=== PATIENT | male | born 1990 | race Caucasian/White ===

== ENCOUNTER 2017-02-23 22:03 | Emergency (ER) | payer MEDICAID ==
[2017-02-23 22:31] VITALS: BP 170/92
--- NOTE | 2017-02-23 22:51 | EDM.PDOCBH ---
[id number]: ADELAIDA Time Seen by Provider: 02/23/17 22:40 Source of Information: Reports: Patient, Family History Limitations: Reports: No Limitations - History of Present Illness INITIAL COMMENTS - FREE TEXT/NARRATIVE: 27-year-old male who is been in detox for the last 3 days was discharged today, they told him he should go to inpatient treatment but he wanted to go home and "clean his apartment". Tonight he was feeling shaky and weak so his family brought him in. Physically he is stable but he looks emotionally anxious. No nausea or vomiting, he ate "Sanchez's" today, no hallucinations and he is thinking clearly. Severity: Moderate Associated Symptoms: Reports: Weakness. Denies: Cough, Nausea/Vomiting - Related Data Allergies Allergy/AdvReac Type Severity Reaction Status Date / Time No Known Allergies Allergy Verified 07/13/16 22:08 Home Meds: Home Meds NK [No Known Home Meds] 07/13/16 [History] Past Medical History Psychiatric History: Reports: Addiction - Infectious Disease History Infectious Disease History: Reports: Chicken Pox Social & Family History - Tobacco Use Smoking Status *Q: Never Smoker Second Hand Smoke Exposure: No - Caffeine Use Caffeine Use: Reports: Other Other Caffeine Use: Caffeinepills twicw a week. - Alcohol Use Days Per Week of Alcohol Use: 2 Number of Drinks Per Day: 15 Total Drinks Per Week: 30 - Recreational Drug Use Recreational Drug Use: No ED ROS GENERAL - Review of Systems Review Of Systems: See Below Constitutional: Reports: Malaise, Weakness. Denies: Fever, Chills Respiratory: Denies: Shortness of Breath Cardiovascular: Denies: Chest Pain GI/Abdominal: Denies: Abdominal Pain, Nausea, Vomiting Neurological: Denies: Headache Psychiatric: Reports: Anxiety ED EXAM, BEHAVIORAL HEALTH - Physical Exam Exam: See Below Exam Limited By: No Limitations General Appearance: Alert, Anxious Eye Exam: Bilateral Eye: EOMI Respiratory/Chest: No Respiratory Distress, Lungs Clear Cardiovascular: Regular Rate, Rhythm Neurological: Alert, Oriented x 3 Psychiatric: Flat Affect, Agitated (Mildly agitated) COURSE, BEHAVIORAL HEALTH COMP - Course Vital Signs: Last Vital Signs Temp 98.2 F 02/23/17 22:45 Pulse 74 02/23/17 22:45 Resp 20 02/23/17 22:45 BP 170/92 H 02/23/17 22:45 Pulse Ox 98 02/23/17 22:45 Orders, Labs, Meds: Medications Discontinued Medications Generic Name Dose Route Start Last Admin Trade Name Burton SELBY Reason Stop Dose Admin Lorazepam 1 mg 02/23/17 23:55 02/23/17 23:59 Ativan PO 02/23/17 23:56 1 mg ONETIME ONE Administration Re-Assessment/Re-Exam: Discussed with the detox center possibly getting the patient in for inpatient treatment tomorrow. He does not qualify for detox as he has already been detoxed for 4 days at another facility and did not drink. He was given 1 mg of Ativan to take by mouth tonight, and his father will call [facility] tomorrow morning to discuss inpatient treatment. Departure - Departure Time of Disposition: 00:12 Disposition: Home, Self-Care 01 Condition: Fair Clinical Impression: Alcohol abuse - Discharge Information Instructions: Alcohol Use Disorder Referrals: PCP,None [Primary Care Provider] - Forms: ED Department Discharge Care Plan Goals: Try to rest tonight, avoid alcohol, and call [facility] tomorrow morning to discuss inpatient treatment.
[2017-02-23] MEDS ORDERED: LORazepam 1 MG Tab PO ONE (23:55)
== END 2017-02-24 00:11 | disposition home or self-care (01) ==
LOC: JP.ED 22:03
DX: F10.10 Alcohol abuse, uncomplicated (principal); R45.1 Restlessness and agitation
CPT/HCPCS: 99284; A9270

== ENCOUNTER 2017-02-26 17:22 | Emergency (ER) | payer MEDICAID ==
[2017-02-26] MEDS ORDERED: HYDROmorphone 1 MG/ML Syringe IM ONE (17:28)
--- NOTE | 2017-02-26 17:37 | EDM.PDOC ---
ED HPI GENERAL MEDICAL PROBLEM - General Stated Complaint: TESTICULAR PAIN Time Seen by Provider: 02/26/17 17:35 Source of Information: Reports: Patient, RN Notes Reviewed History Limitations: Reports: No Limitations - History of Present Illness INITIAL COMMENTS - FREE TEXT/NARRATIVE: 27-year-old gentleman sent over from clinic for right testicular pain he states he had some dull achy pain throughout the day was been evaluated in urgent care clinic after the exam when he had to turn his head and cough developed excruciating pain was immediately transferred to the emergency department for further evaluation Groin Pain Score (Numeric/FACES): 10 - Related Data Allergies Allergy/AdvReac Type Severity Reaction Status Date / Time No Known Allergies Allergy Verified 02/26/17 17:39 Home Meds: Home Meds NK [No Known Home Meds] 07/13/16 [History] Past Medical History Psychiatric History: Reports: Addiction - Infectious Disease History Infectious Disease History: Reports: Chicken Pox Social & Family History - Tobacco Use Smoking Status *Q: Never Smoker Second Hand Smoke Exposure: No - Caffeine Use Caffeine Use: Reports: Other Other Caffeine Use: Caffeinepills twicw a week. - Alcohol Use Days Per Week of Alcohol Use: 2 Number of Drinks Per Day: 15 Total Drinks Per Week: 30 - Recreational Drug Use Recreational Drug Use: No ED ROS GENERAL - Review of Systems Review Of Systems: See Below Constitutional: Reports: No Symptoms Respiratory: Reports: No Symptoms Cardiovascular: Reports: No Symptoms : Reports: Pain (testicular pain right side) ED EXAM, RENAL/ - Physical Exam Exam: See Below Text/Narrative:: Palpation of the abdomen is soft nontender however he will not tolerate any examination of the testicles circumcised male Exam Limited By: No Limitations General Appearance: Alert, Severe Distress Course - Vital Signs Last Recorded V/S: Last Vital Signs Temp 98.2 F 02/26/17 17:36 Pulse 95 02/26/17 17:36 Resp 24 H 02/26/17 17:36 BP 164/90 H 02/26/17 17:36 Pulse Ox 100 02/26/17 17:36 - Orders/Labs/Meds Orders: Active Orders 24 hr Category Date Time Status Scrotal Duplex Complete [US] Routine Exams 02/26/17 Taken Scrotum and Contents [US] Stat Exams 02/26/17 17:28 Taken cefTRIAXone [Rocephin] Med 02/26/17 19:02 Once 0.25 gm IM ONETIME ONE Medication Orders Ceftriaxone Sodium (Rocephin) 0.25 gm IM ONETIME ONE Stop: 02/26/17 19:03 Meds: Medications Generic Name Dose Route Start Last Admin Trade Name Freq PRN Reason Stop Dose Admin Ceftriaxone Sodium 0.25 gm 02/26/17 19:02 Rocephin IM 02/26/17 19:03 ONETIME ONE Discontinued Medications Generic Name Dose Route Start Last Admin Trade Name Freq PRN Reason Stop Dose Admin Hydromorphone HCl 1 mg 02/26/17 17:28 02/26/17 17:38 Dilaudid IM 02/26/17 17:29 1 mg ONETIME ONE Administration Departure - Departure Time of Disposition: 19:03 Disposition: Home, Self-Care 01 Condition: Good Clinical Impression: Epididymitis - Discharge Information Additional Instructions: Take full course of antibiotics, use Tylenol or Motrin as needed for pain, call return to the emergency department worsening of symptoms - My Orders Last 24 Hours: My Active Orders 02/26/17 Scrotal Duplex Complete [US] Routine 02/26/17 17:28 Scrotum and Contents [US] Stat 02/26/17 19:02 cefTRIAXone [Rocephin] 0.25 gm IM ONETIME ONE - Assessment/Plan Last 24 Hours: My Active Orders 02/26/17 Scrotal Duplex Complete [US] Routine 02/26/17 17:28 Scrotum and Contents [US] Stat 02/26/17 19:02 cefTRIAXone [Rocephin] 0.25 gm IM ONETIME ONE Plan: Assessment Acuity = acute Site and laterality = epididymitis right testicle Etiology = probable bacterial cause Manifestations = testicular pain Location of injury = Home Lab values = ultrasound demonstrated epididymitis Plan Elected treat with ceftriaxone 250 mg IM 1+ doxycycline 100 mg by mouth twice a day 7 days follow-up with primary care in 5-7 days if no improvement, Patient was in agreement with the plan all questions were answered, they were instructed to return to the emergency department or call for worsening symptoms. This note was dictated using [employer] voice recognition software please call with any questions.
[2017-02-26 17:38] VITALS: BP 164/90
[2017-02-26] MEDS ORDERED: cefTRIAXone 1 GM Vial IM ONE (19:02)
[2017-02-26] MEDS ORDERED: cefTRIAXone 0.25 GM, Lidocaine 1% 2.1 ML IM ONE ×2 (19:08)
== END 2017-02-26 19:27 | disposition home or self-care (01) ==
LOC: JP.ED 17:22
DX: N45.1 Epididymitis (principal)
CPT/HCPCS: 76870; 93975; 96372; 99284; J0696; J1170

== ENCOUNTER 2017-03-04 18:23 | Emergency (ER) | payer MEDICAID ==
[2017-03-04] MEDS ORDERED: Sodium Chloride 0.9% 10 ML Syringe FLUSH PRN (18:58)
[2017-03-04] MEDS ORDERED: Ketorolac 30 MG/ML SDV IVPUSH ONE (18:59)
[2017-03-04 20:46] VITALS: BP 155/100
[2017-03-04] MEDS ORDERED: Sodium Chloride 0.9% 1,000 ML IV SCH (21:00)
[2017-03-04] MEDS ORDERED: HYDROmorphone 1 MG/ML Syringe IVPUSH ONE (21:34)
[2017-03-04] MEDS ORDERED: LORazepam 2 MG/ML MDV IVPUSH ONE (21:34)
--- NOTE | 2017-03-04 22:22 | EDM.PDOC ---
ED HPI GENERAL MEDICAL PROBLEM - General Chief Complaint: Genitourinary Problem Stated Complaint: TESTICLE PAIN Time Seen by Provider: 03/04/17 18:29 Source of Information: Reports: Patient History Limitations: Reports: No Limitations - History of Present Illness INITIAL COMMENTS - FREE TEXT/NARRATIVE: History of present illness: [27-year-old male was seen recently here in the ER and diagnosed with epididymitis and is on doxycycline for this but is not getting better. He was given oxycodone to control his pain ran out yesterday and presents now again with some severe right testicular pain. The reports of the ultrasound etc. that was done on his last visit. Said no fevers chills sweats cough or cold symptoms. I did speak to the patient alone and also to his father alone and the patient is actually admitting to being an alcoholic and has not drank for a week and is quite jittery and shaky as a result of that. His father who is also a recovering alcoholic is trying to find a place where he can be treated. He is a listing the help of social contact worker try to do this. Patient states though that he is afraid that medical care providers will focus on his alcoholism and his tremulousness is resulted of withdrawal and not realize that he actually is having right testicular pain.] Review of systems: As per history of present illness and below otherwise all systems reviewed and negative. Past medical history: As per history of present illness and as reviewed below otherwise noncontributory. Surgical history: As per history of present illness and as reviewed below otherwise noncontributory. Social history: No reported history of drug or alcohol abuse. Family history: As per history of present illness and as reviewed below otherwise noncontributory. Physical exam: Gen.: Patient is tremulous arms legs and even in the face and voice are tremulous and consistent with alcohol withdrawal. HEENT: Atraumatic, normocephalic, pupils reactive, negative for conjunctival pallor or scleral icterus, mucous membranes moist, throat clear, neck supple, nontender, trachea midline. Lungs: Clear to auscultation, breath sounds equal bilaterally, chest nontender. Heart: S1S2, regular, negative for clicks, rubs, or JVD. Abdomen: Soft, nondistended, nontender. Negative for masses or hepatosplenomegaly. Negative for costovertebral tenderness. Pelvis: Stable nontender. Genitourinary: Examination of his genitals reveal that he does have tenderness to palpation of the right testicle but I do not appreciate any masses or epididymal swelling he's been on doxycycline for about 7 days and that has not improved his pain so I'm questioning that diagnosis. He is cords nontender I'm not appreciating any hernias. He has no discharge. Rectal: Deferred. Extremities: Atraumatic, negative for cords or calf pain. Neurovascular unremarkable. Neuro: Awake, alert, oriented. Exam nonfocal. Diagnostics: [I did do an abdominal pelvic CT to rule out a kidney stone and that was negative. Other lab work included CBC complete metabolic panel and UA all which are unremarkable. Urine drug screen was positive for oxycodone which he was prescribed.] Therapeutics: [He was given IV fluids IV Ativan for his obvious alcohol withdrawal and also IV Dilaudid and felt much better with this.] Impression: [Right testicular pain of uncertain etiology Alcohol withdrawal ] Plan: [I'm providing him with [place] and Ativan [place] for his pain and Ativan for his withdrawal his father seems sincere in wanting to get him into treatment and is very supportive and he seems sincere also in wanting to come clean and come off of alcohol. We are also making arrangements for him to be seen by a surgeon tomorrow just to make sure there were not missing any pathology.] Definitive disposition and diagnosis as appropriate pending reevaluation and review of above. right testicle Pain Score (Numeric/FACES): 6 - Related Data Allergies Allergy/AdvReac Type Severity Reaction Status Date / Time No Known Allergies Allergy Verified 03/04/17 19:31 Home Meds: Home Meds NK [No Known Home Meds] 07/13/16 [History] Past Medical History - Past Health History Medical/Surgical History: Denies Medical/Surgical History HEENT History: Reports: None Cardiovascular History: Reports: None Respiratory History: Reports: None Gastrointestinal History: Reports: None Genitourinary History: Reports: None Musculoskeletal History: Reports: None Neurological History: Reports: None Psychiatric History: Reports: Addiction Endocrine/Metabolic History: Reports: None Hematologic History: Reports: None Immunologic History: Reports: None Oncologic (Cancer) History: Reports: None Dermatologic History: Reports: None - Infectious Disease History Infectious Disease History: Reports: Chicken Pox - Past Surgical History Head Surgeries/Procedures: Reports: None HEENT Surgical History: Reports: None Cardiovascular Surgical History: Reports: None Respiratory Surgical History: Reports: None GI Surgical History: Reports: None Endocrine Surgical History: Reports: None Neurological Surgical History: Reports: None Musculoskeletal Surgical History: Reports: None Oncologic Surgical History: Reports: None Dermatological Surgical History: Reports: None Social & Family History - Tobacco Use Smoking Status *Q: Never Smoker Second Hand Smoke Exposure: No - Caffeine Use Caffeine Use: Reports: None Other Caffeine Use: Caffeinepills twicw a week. - Alcohol Use Days Per Week of Alcohol Use: 2 Number of Drinks Per Day: 15 Total Drinks Per Week: 30 - Recreational Drug Use Recreational Drug Use: No ED ROS GENERAL - Review of Systems Review Of Systems: ROS reveals no pertinent complaints other than HPI. ED EXAM, GENERAL - Physical Exam Exam: See Below Course - Vital Signs Last Recorded V/S: Last Vital Signs Temp 37.4 C 03/04/17 18:51 Pulse 81 03/04/17 20:46 Resp 16 03/04/17 20:46 BP 155/100 H 03/04/17 20:46 Pulse Ox 98 03/04/17 20:46 - Orders/Labs/Meds Orders: Active Orders 24 hr Category Date Time Status Abdomen Pelvis wo Cont [CT] Stat Exams 03/04/17 19:42 Taken Sodium Chloride 0.9% [Normal Saline] 1,000 ml Med 03/04/17 21:00 Active IV ASDIRECTED Sodium Chloride 0.9% [Saline Flush] Med 03/04/17 18:58 Active 10 ml FLUSH ASDIRECTED PRN Saline Lock Insert [OM.PC] Stat Oth 03/04/17 18:58 Ordered Medication Orders Sodium Chloride (Normal Saline) 1,000 mls @ 999 mls/hr IV ASDIRECTED NITHIN Last Admin: 03/04/17 21:34 Dose: 999 mls/hr Sodium Chloride (Saline Flush) 10 ml FLUSH ASDIRECTED PRN PRN Reason: Keep Vein Open Last Admin: 03/04/17 19:32 Dose: 10 ml Labs: Laboratory Tests 03/04/17 03/04/17 03/04/17 Range/Units 19:00 19:00 19:00 WBC 9.5 (4.5-11.0) K/uL RBC 5.16 (4.30-5.90) M/uL Hgb 14.4 D (12.0-15.0) g/dL Hct 43.5 (40.0-54.0) % MCV 84 (80-98) fL MCH 28 (27-31) pg MCHC 33 (32-36) % Plt Count 326 (150-400) K/uL Neut % (Auto) 58 (36-66) % Lymph % (Auto) 26 (24-44) % Lamb % (Auto) 14 H (2-6) % Eos % (Auto) 1 L (2-4) % Baso % (Auto) 1 (0-1) % Sodium 137 L (140-148) mmol/L Potassium 3.7 (3.6-5.2) mmol/L Chloride 102 (100-108) mmol/L Carbon Dioxide 32 (21-32) mmol/L Anion Gap 6.7 (5.0-14.0) mmol/L BUN 6 L (7-18) mg/dL Creatinine 0.9 (0.8-1.3) mg/dL Est Cr Clr Drug Dosing 137.25 mL/min Estimated GFR (MDRD) > 60 (>60) Glucose 93 (74-106) mg/dL Lactic Acid 1.3 (0.4-2.0) mmol/L Calcium 9.4 (8.5-10.1) mg/dL Total Bilirubin 0.3 (0.2-1.0) mg/dL AST 14 L (15-37) U/L ALT 25 (12-78) U/L Alkaline Phosphatase 61 (46-116) U/L C-Reactive Protein (0.0-0.3) mg/dL Total Protein 7.8 (6.4-8.2) g/dL Albumin 4.1 (3.4-5.0) g/dL Globulin 3.7 H (2.3-3.5) g/dL Albumin/Globulin Ratio 1.1 L (1.2-2.2) Urine Color Urine Appearance Urine pH (4.5-8.0) Ur Specific [place] (1.008-1.030) Urine Protein (NEGATIVE) mg/dL Urine Glucose (UA) (NEGATIVE) mg/dL Urine Ketones (NEGATIVE) mg/dL Urine Occult Blood (NEGATIVE) Urine Nitrite (NEGAITVE) Urine Bilirubin (NEGATIVE) Urine Urobilinogen (NORMAL) mg/dL Ur Leukocyte Esterase (NEGATIVE) Urine RBC (0-5) Urine WBC (0-5) Ur Epithelial Cells Amorphous Sediment Urine Bacteria Urine Mucus Urine Other Urine Opiates Screen (NEGATIVE) Ur Oxycodone Screen (NEGATIVE) Urine Methadone Screen (NEGATIVE) Ur Propoxyphene Screen (NEGATIVE) Ur Barbiturates Screen (NEGATIVE) Ur Tricyclics Screen (NEGATIVE) Ur Phencyclidine Scrn (NEGATIVE) Ur Amphetamine Screen (NEGATIVE) U Methamphetamines Scrn (NEGATIVE) Urine MDMA Screen (NEGATIVE) U Benzodiazepines Scrn (NEGATIVE) U Cocaine Metab Screen (NEGATIVE) U Marijuana (THC) Screen (NEGATIVE) Ethyl Alcohol mg/dL 03/04/17 03/04/17 03/04/17 Range/Units 19:00 19:20 20:30 WBC (4.5-11.0) K/uL RBC (4.30-5.90) M/uL Hgb (12.0-15.0) g/dL Hct (40.0-54.0) % MCV (80-98) fL MCH (27-31) pg MCHC (32-36) % Plt Count (150-400) K/uL Neut % (Auto) (36-66) % Lymph % (Auto) (24-44) % Lamb % (Auto) (2-6) % Eos % (Auto) (2-4) % Baso % (Auto) (0-1) % Sodium (140-148) mmol/L Potassium (3.6-5.2) mmol/L Chloride (100-108) mmol/L Carbon Dioxide (21-32) mmol/L Anion Gap (5.0-14.0) mmol/L BUN (7-18) mg/dL Creatinine (0.8-1.3) mg/dL Est Cr Clr Drug Dosing mL/min Estimated GFR (MDRD) (>60) Glucose (74-106) mg/dL Lactic Acid (0.4-2.0) mmol/L Calcium (8.5-10.1) mg/dL Total Bilirubin (0.2-1.0) mg/dL AST (15-37) U/L ALT (12-78) U/L Alkaline Phosphatase (46-116) U/L C-Reactive Protein 0.03 (0.0-0.3) mg/dL Total Protein (6.4-8.2) g/dL Albumin (3.4-5.0) g/dL Globulin (2.3-3.5) g/dL Albumin/Globulin Ratio (1.2-2.2) Urine Color Yellow Urine Appearance Cloudy Urine pH 6.0 (4.5-8.0) Ur Specific [place] 1.020 (1.008-1.030) Urine Protein Negative (NEGATIVE) mg/dL Urine Glucose (UA) Normal (NEGATIVE) mg/dL Urine Ketones Negative (NEGATIVE) mg/dL Urine Occult Blood Negative (NEGATIVE) Urine Nitrite Negative (NEGAITVE) Urine Bilirubin Negative (NEGATIVE) Urine Urobilinogen Normal (NORMAL) mg/dL Ur Leukocyte Esterase Negative (NEGATIVE) Urine RBC 0-5 (0-5) Urine WBC 0-5 (0-5) Ur Epithelial Cells Rare Amorphous Sediment Numerous Urine Bacteria Moderate Urine Mucus Not seen Urine Other Urine Opiates Screen (NEGATIVE) Ur Oxycodone Screen (NEGATIVE) Urine Methadone Screen (NEGATIVE) Ur Propoxyphene Screen (NEGATIVE) Ur Barbiturates Screen (NEGATIVE) Ur Tricyclics Screen (NEGATIVE) Ur Phencyclidine Scrn (NEGATIVE) Ur Amphetamine Screen (NEGATIVE) U Methamphetamines Scrn (NEGATIVE) Urine MDMA Screen (NEGATIVE) U Benzodiazepines Scrn (NEGATIVE) U Cocaine Metab Screen (NEGATIVE) U Marijuana (THC) Screen (NEGATIVE) Ethyl Alcohol < 3 mg/dL 03/04/17 Range/Units 20:42 WBC (4.5-11.0) K/uL RBC (4.30-5.90) M/uL Hgb (12.0-15.0) g/dL Hct (40.0-54.0) % MCV (80-98) fL MCH (27-31) pg MCHC (32-36) % Plt Count (150-400) K/uL Neut % (Auto) (36-66) % Lymph % (Auto) (24-44) % Lamb % (Auto) (2-6) % Eos % (Auto) (2-4) % Baso % (Auto) (0-1) % Sodium (140-148) mmol/L Potassium (3.6-5.2) mmol/L Chloride (100-108) mmol/L Carbon Dioxide (21-32) mmol/L Anion Gap (5.0-14.0) mmol/L BUN (7-18) mg/dL Creatinine (0.8-1.3) mg/dL Est Cr Clr Drug Dosing mL/min Estimated GFR (MDRD) (>60) Glucose (74-106) mg/dL Lactic Acid (0.4-2.0) mmol/L Calcium (8.5-10.1) mg/dL Total Bilirubin (0.2-1.0) mg/dL AST (15-37) U/L ALT (12-78) U/L Alkaline Phosphatase (46-116) U/L C-Reactive Protein (0.0-0.3) mg/dL Total Protein (6.4-8.2) g/dL Albumin (3.4-5.0) g/dL Globulin (2.3-3.5) g/dL Albumin/Globulin Ratio (1.2-2.2) Urine Color Urine Appearance Urine pH (4.5-8.0) Ur Specific [place] (1.008-1.030) Urine Protein (NEGATIVE) mg/dL Urine Glucose (UA) (NEGATIVE) mg/dL Urine Ketones (NEGATIVE) mg/dL Urine Occult Blood (NEGATIVE) Urine Nitrite (NEGAITVE) Urine Bilirubin (NEGATIVE) Urine Urobilinogen (NORMAL) mg/dL Ur Leukocyte Esterase (NEGATIVE) Urine RBC (0-5) Urine WBC (0-5) Ur Epithelial Cells Amorphous Sediment Urine Bacteria Urine Mucus Urine Other Urine Opiates Screen Positive H (NEGATIVE) Ur Oxycodone Screen Negative (NEGATIVE) Urine Methadone Screen Negative (NEGATIVE) Ur Propoxyphene Screen Negative (NEGATIVE) Ur Barbiturates Screen Negative (NEGATIVE) Ur Tricyclics Screen Negative (NEGATIVE) Ur Phencyclidine Scrn Negative (NEGATIVE) Ur Amphetamine Screen Negative (NEGATIVE) U Methamphetamines Scrn Negative (NEGATIVE) Urine MDMA Screen Negative (NEGATIVE) U Benzodiazepines Scrn Negative (NEGATIVE) U Cocaine Metab Screen Negative (NEGATIVE) U Marijuana (THC) Screen Negative (NEGATIVE) Ethyl Alcohol mg/dL Meds: Medications Generic Name Dose Route Start Last Admin Trade Name Freq PRN Reason Stop Dose Admin Sodium Chloride 1,000 mls @ 999 mls/hr 03/04/17 21:00 03/04/17 21:34 Normal Saline IV 999 mls/hr ASDIRECTED NITHIN Administration Sodium Chloride 10 ml 08/23/17 18:58 03/04/17 19:32 Saline Flush FLUSH 10 ml ASDIRECTED PRN Administration Keep Vein Open Discontinued Medications Generic Name Dose Route Start Last Admin Trade Name Burton PRN Reason Stop Dose Admin Hydromorphone HCl 1 mg 03/04/17 21:34 03/04/17 21:55 Dilaudid IVPUSH 03/04/17 21:35 1 mg ONETIME ONE Administration Ketorolac Tromethamine 30 mg 03/04/17 18:59 03/04/17 19:32 Toradol IVPUSH 03/04/17 19:00 30 mg ONETIME ONE Administration Lorazepam 1 mg 03/04/17 21:34 03/04/17 21:56 Ativan IVPUSH 03/04/17 21:35 1 mg ONETIME ONE Administration Departure - Departure Time of Disposition: 22:22 Disposition: Home, Self-Care 01 Condition: Good Clinical Impression: Testicular pain, right Alcohol withdrawal Qualifiers: Complication of substance-induced condition: uncomplicated Qualified Code(s): F10.230 - Alcohol dependence with withdrawal, uncomplicated - Discharge Information Forms: ED Department Discharge Additional Instructions: Summary should be calling you from the clinic tomorrow to get into see a surgeon. If you do not hear from the clinic then I would recommend calling them. The nurses should be providing you with phone numbers for this. I wish you success he has you try to improve your life and part with the demon of alcohol. - My Orders Last 24 Hours: My Active Orders 03/04/17 18:58 Sodium Chloride 0.9% [Saline Flush] 10 ml FLUSH ASDIRECTED PRN Saline Lock Insert [OM.PC] Stat 03/04/17 19:42 Abdomen Pelvis wo Cont [CT] Stat 03/04/17 21:00 Sodium Chloride 0.9% [Normal Saline] 1,000 ml IV ASDIRECTED - Assessment/Plan Last 24 Hours: My Active Orders 03/04/17 18:58 Sodium Chloride 0.9% [Saline Flush] 10 ml FLUSH ASDIRECTED PRN Saline Lock Insert [OM.PC] Stat 03/04/17 19:42 Abdomen Pelvis wo Cont [CT] Stat 03/04/17 21:00 Sodium Chloride 0.9% [Normal Saline] 1,000 ml IV ASDIRECTED
== END 2017-03-04 22:44 | disposition home or self-care (01) ==
LOC: JP.ED 18:23
DX: N50.811 Right testicular pain (principal); F10.230 Alcohol dependence with withdrawal, uncomplicated
CPT/HCPCS: 36415; 74176; 80053; 80305; 81001; 83605; 85025; 86140; 96361; 96374; 96375; 99284; G0480; J1170; J1885; J2060; J7040; J7050

== ENCOUNTER 2017-03-05 14:59 | Emergency (ER) | payer MEDICAID ==
[2017-03-05] MEDS ORDERED: Naloxone 0.4 MG/ML SDV IVPUSH ONE ×2 (15:10→15:44)
[2017-03-05] MEDS ORDERED: Sodium Chloride 0.9% 1,000 ML IV SCH (15:15)
--- NOTE | 2017-03-05 15:18 | EDM.PDOC ---
ED HPI GENERAL MEDICAL PROBLEM - General Chief Complaint: Neurological Problem Stated Complaint: FROM CLINIC Time Seen by Provider: 03/05/17 15:00 Source of Information: Reports: Old Records History Limitations: Reports: Other (patient not able to provide history due to somnolence.) - History of Present Illness INITIAL COMMENTS - FREE TEXT/NARRATIVE: 27 yo male with a pHx of alcohol abuse, but no reported recent drinking, was seen in the ER yesterday for testicular pain and was prescribed hydrocodone and lorazepam. His father thinks he's only had one of each. Showed up snowed at his surgical appt today that he was attending on referral from the ER. Because of this extreme sedation he was referred back to the ER for evaluation. Has gotten more sedated as the day has progressed. Father is going to call home and have his recount the remaining # of pills in his bottles. Verified only 1 pill missing from each bottle. Onset: Today Onset Date: 03/05/17 Duration: Hour(s): Location: Reports: Generalized Quality: Reports: Other Severity: Severe Improves with: Reports: Other (extreme stimulization will slightly arouse.) Worsens with: Reports: Other (time) Context: Reports: Other (hx of alcohol abuse.) Associated Symptoms: Reports: No Other Symptoms Treatments GAS TORCH BRAZIER: Reports: Other (see below) (none) - Related Data Allergies Allergy/AdvReac Type Severity Reaction Status Date / Time No Known Allergies Allergy Verified 03/04/17 19:31 Home Meds: Home Meds NK [No Known Home Meds] 07/13/16 [History] Past Medical History - Past Health History Medical/Surgical History: Denies Medical/Surgical History HEENT History: Reports: None Cardiovascular History: Reports: None Respiratory History: Reports: None Gastrointestinal History: Reports: None Genitourinary History: Reports: None Musculoskeletal History: Reports: None Neurological History: Reports: None Psychiatric History: Reports: Addiction Endocrine/Metabolic History: Reports: None Hematologic History: Reports: None Immunologic History: Reports: None Oncologic (Cancer) History: Reports: None Dermatologic History: Reports: None - Infectious Disease History Infectious Disease History: Reports: Chicken Pox - Past Surgical History Head Surgeries/Procedures: Reports: None HEENT Surgical History: Reports: None Cardiovascular Surgical History: Reports: None Respiratory Surgical History: Reports: None GI Surgical History: Reports: None Endocrine Surgical History: Reports: None Neurological Surgical History: Reports: None Musculoskeletal Surgical History: Reports: None Oncologic Surgical History: Reports: None Dermatological Surgical History: Reports: None Social & Family History - Tobacco Use Smoking Status *Q: Never Smoker Second Hand Smoke Exposure: No - Caffeine Use Caffeine Use: Reports: None Other Caffeine Use: Caffeinepills twicw a week. - Alcohol Use Days Per Week of Alcohol Use: 2 Number of Drinks Per Day: 15 Total Drinks Per Week: 30 - Recreational Drug Use Recreational Drug Use: No ED ROS GENERAL - Review of Systems Review Of Systems: See Below Constitutional: Reports: No Symptoms HEENT: Reports: No Symptoms Respiratory: Reports: No Symptoms Cardiovascular: Reports: No Symptoms GI/Abdominal: Reports: No Symptoms : Reports: No Symptoms Skin: Reports: No Symptoms Neurological: Reports: Other (extreme sedation) Psychiatric: Reports: Other (minimal response to stimuli, shallow respirations) - Physical Exam Exam: See Below Exam Limited By: Other (Unable to provide history.) General Appearance: Alert, WD/WN, Obtunded Eye Exam: Bilateral Eye: PERRL (pupils constricted and non-responsive.) Ears: Normal External Exam, Normal Canal Nose: Normal Inspection, Normal Mucosa, No Blood Throat/Mouth: Normal Inspection, Normal Lips, Normal Oropharynx, No Airway Compromise Head Exam: Atraumatic, Normocephalic Neck: Normal Inspection Respiratory/Chest: No Respiratory Distress, Lungs Clear, Normal Breath Sounds, No Accessory Muscle Use Cardiovascular: Regular Rate, Rhythm, No Edema GI/Abdominal: Normal Bowel Sounds, Soft, Non-Tender, No Distention Neuro Exam (Abbreviated): Unresponsive, Other (Glascow coma scale estimate: 8) Back Exam: Normal Inspection Extremities: Normal Inspection, Normal Range of Motion, No Pedal Edema Psychiatric: Depressed Mood, Flat Affect, Other (very lethargic) Skin Exam: Warm, Dry, Intact, Normal Color, No Rash Course - Vital Signs Text/Narrative:: No clinical response to the Narcan dosing. Dr. Franco called @ 1450h and asked to see patient in the ER, anesthesia called regarding intubation of this man with a Glascow of 8. Will transfer via air to [facility] for pending sale to [facility] 1 er evaluation and tx, transfer via air. Dr. courtney. Last Recorded V/S: Last Vital Signs Temp 35.2 C 03/05/17 16:28 Pulse 83 03/05/17 16:28 Resp 16 03/05/17 15:32 BP 128/80 03/05/17 16:28 Pulse Ox 96 03/05/17 16:28 - Orders/Labs/Meds Orders: Active Orders 24 hr Category Date Time Status Cardiac Monitoring [RC] .As Directed Care 03/05/17 15:11 Active Oneil Catheter Insertion [Insert Urinary Catheter] [OM. Care 03/05/17 15:15 Ordered PC] Q24H Urinary Catheter Assessment [RC] ASDIRECTED Care 03/05/17 15:10 Active Head wo Cont [CT] Stat Exams 03/05/17 16:04 Taken Sodium Chloride 0.9% [Normal Saline] 1,000 ml Med 03/05/17 15:15 Active IV ASDIRECTED Medication Orders Sodium Chloride (Normal Saline) 1,000 mls @ 150 mls/hr IV ASDIRECTED NITHIN Last Admin: 03/05/17 15:23 Dose: 150 mls/hr Labs: Laboratory Tests 03/05/17 03/05/17 03/05/17 Range/Units 15:00 15:00 15:00 WBC 9.3 (4.5-11.0) K/uL RBC 4.89 (4.30-5.90) M/uL Hgb 13.6 (12.0-15.0) g/dL Hct 42.0 (40.0-54.0) % MCV 86 (80-98) fL MCH 28 (27-31) pg MCHC 32 (32-36) % Plt Count 347 (150-400) K/uL Sodium 140 (140-148) mmol/L Potassium 4.2 (3.6-5.2) mmol/L Chloride 103 (100-108) mmol/L Carbon Dioxide 33 H (21-32) mmol/L Anion Gap 8.2 (5.0-14.0) mmol/L BUN 9 (7-18) mg/dL Creatinine 0.8 (0.8-1.3) mg/dL Est Cr Clr Drug Dosing TNP Estimated GFR (MDRD) > 60 (>60) Glucose 82 (74-106) mg/dL Calcium 9.2 (8.5-10.1) mg/dL Urine Opiates Screen (NEGATIVE) Ur Oxycodone Screen (NEGATIVE) Urine Methadone Screen (NEGATIVE) Ur Propoxyphene Screen (NEGATIVE) Ur Barbiturates Screen (NEGATIVE) Ur Tricyclics Screen (NEGATIVE) Ur Phencyclidine Scrn (NEGATIVE) Ur Amphetamine Screen (NEGATIVE) U Methamphetamines Scrn (NEGATIVE) Urine MDMA Screen (NEGATIVE) U Benzodiazepines Scrn (NEGATIVE) U Cocaine Metab Screen (NEGATIVE) U Marijuana (THC) Screen (NEGATIVE) Ethyl Alcohol < 3 mg/dL 03/05/17 Range/Units 15:00 WBC (4.5-11.0) K/uL RBC (4.30-5.90) M/uL Hgb (12.0-15.0) g/dL Hct (40.0-54.0) % MCV (80-98) fL MCH (27-31) pg MCHC (32-36) % Plt Count (150-400) K/uL Sodium (140-148) mmol/L Potassium (3.6-5.2) mmol/L Chloride (100-108) mmol/L Carbon Dioxide (21-32) mmol/L Anion Gap (5.0-14.0) mmol/L BUN (7-18) mg/dL Creatinine (0.8-1.3) mg/dL Est Cr Clr Drug Dosing Estimated GFR (MDRD) (>60) Glucose (74-106) mg/dL Calcium (8.5-10.1) mg/dL Urine Opiates Screen Positive H (NEGATIVE) Ur Oxycodone Screen Negative (NEGATIVE) Urine Methadone Screen Negative (NEGATIVE) Ur Propoxyphene Screen Negative (NEGATIVE) Ur Barbiturates Screen Negative (NEGATIVE) Ur Tricyclics Screen Negative (NEGATIVE) Ur Phencyclidine Scrn Negative (NEGATIVE) Ur Amphetamine Screen Negative (NEGATIVE) U Methamphetamines Scrn Negative (NEGATIVE) Urine MDMA Screen Negative (NEGATIVE) U Benzodiazepines Scrn Positive H (NEGATIVE) U Cocaine Metab Screen Negative (NEGATIVE) U Marijuana (THC) Screen Negative (NEGATIVE) Ethyl Alcohol mg/dL Meds: Medications Generic Name Dose Route Start Last Admin Trade Name Freq PRN Reason Stop Dose Admin Sodium Chloride 1,000 mls @ 150 mls/hr 03/05/17 15:15 03/05/17 15:23 Normal Saline IV 150 mls/hr ASDIRECTED NITHIN Administration Discontinued Medications Generic Name Dose Route Start Last Admin Trade Name Freq PRN Reason Stop Dose Admin Naloxone HCl 0.4 mg 08/24/17 15:10 03/05/17 15:20 Narcan IVPUSH 03/05/17 15:11 0.4 mg ONETIME ONE Administration Naloxone HCl 0.4 mg 03/05/17 15:44 03/05/17 15:47 Narcan IVPUSH 03/05/17 15:45 0.4 mg ONETIME ONE Administration - Radiology Interpretation Free Text/Narrative:: Negative Head CT scan CT Results Date: 03/05/17 CT Results Time: 16:38 Departure - Departure Time of Disposition: 18:05 Disposition: DC/Tfer to Acute Hospital 02 Condition: Poor Clinical Impression: Altered level of consciousness - Discharge Information Referrals: PCP,None [Primary Care Provider] - Forms: ED Department Discharge - My Orders Last 24 Hours: My Active Orders 03/05/17 15:10 Urinary Catheter Assessment [RC] ASDIRECTED 03/05/17 15:11 Cardiac Monitoring [RC] .As Directed 03/05/17 15:15 Oneil Catheter Insertion [Insert Urinary Catheter] [OM.PC] Q24H Sodium Chloride 0.9% [Normal Saline] 1,000 ml IV ASDIRECTED 03/05/17 16:04 Head wo Cont [CT] Stat - Assessment/Plan Last 24 Hours: My Active Orders 03/05/17 15:10 Urinary Catheter Assessment [RC] ASDIRECTED 03/05/17 15:11 Cardiac Monitoring [RC] .As Directed 03/05/17 15:15 Oneil Catheter Insertion [Insert Urinary Catheter] [OM.PC] Q24H Sodium Chloride 0.9% [Normal Saline] 1,000 ml IV ASDIRECTED 03/05/17 16:04 Head wo Cont [CT] Stat
[2017-03-05] MEDS ORDERED: Ketamine 500 MG/5 ML MDV ONE (17:34)
[2017-03-05] MEDS ORDERED: Ketamine 500 MG/5 ML MDV IV STA (17:49)
[2017-03-05] MEDS ORDERED: Rocuronium 50 MG/5 ML Vial IV ONE (17:50)
[2017-03-05] MEDS ORDERED: Rocuronium 50 MG/5 ML Vial ONE (17:51)
[2017-03-05 17:57] VITALS: BP 139/98
--- NOTE | 2017-03-06 08:44 | CR ---
Chest 1V Frontal INDICATION: tube placement FINDINGS: ETT with tip 6.4 cm above the ry.
== END 2017-03-05 18:20 ==
LOC: JP.ED 14:59
DX: R40.4 Transient alteration of awareness (principal)
CPT/HCPCS: 36415; 70450; 71010; 80048; 80305; 85027; 96361; 96374; 96375; 99285; G0480; J2310; J7040